=== PATIENT | female | born 1940 | race American Indian/Alaskan Native ===

== ENCOUNTER 2018-01-16 10:15 | Outpatient (CLI) | payer MEDICARE ==
--- NOTE | 2018-01-16 16:17 | Mammography Report ---
BILATERAL DIGITAL SCREENING MAMMOGRAM with CAD: 01/16/18 10:15:00 CLINICAL: Routine screening. COMPARISON:None available. FINDINGS: There are scattered areas of fibroglandular density.Bilateral benign vascular calcifications. No mass, architectural distortion or suspicious calcifications. IMPRESSION: No mammographic evidence of malignancy. BI-RADS CATEGORY: 2 -- Benign RECOMMENDATION: Routine mammographic screening in one year. COMMENT: Patient follow-up letters are generated by our [employer] application.
== END 2018-01-16 10:16 | disposition home or self-care (01) ==
LOC: MAMMO 10:15
PROVIDERS: ATTEND General Practice
DX: Z12.31 Encounter for screening mammogram for malignant neoplasm of breast (principal)
CPT/HCPCS: 77067

== ENCOUNTER 2018-12-01 08:53 | Day surgery (SDC) | payer MEDICARE | END 2018-12-01 09:45 | disposition home or self-care (01) | LOC: CATHLABREC 08:53 ==

== ENCOUNTER 2018-12-21 07:47 | Day surgery (SDC) | payer MEDICARE ==
[2018-12-21 09:02] LABS: Basophils # (Auto) 0.1 K/mm3 (0.0-0.1); Basophils % (Auto) 1.1 % (0.0-1.8); Eosinophils # (Auto) 0.2 K/mm3 (0.0-0.4); Hemoglobin 11.6 gm/dl (10.1-14.3); Lymphocytes # (Auto) 2.6 K/mm3 (1.2-5.4); Lymphocytes % (Auto) 33.5 % (13.4-35.0); Mean Corpuscular HGB Conc 33 % (30-34); Mean Corpuscular Volume 86 fl (79-97); Monocytes # (Auto) 0.7 K/mm3 (0.0-0.8); Monocytes % (Auto) 9.4 % (0.0-7.3); Platelet Count 378 K/mm3 (140-440); Red Blood Count 4.05 M/mm3 (3.65-5.03); Red Cell Distribution Width 14.7 % (13.2-15.2)
[2018-12-21 09:04] LABS: BUN/Creatinine Ratio 13; Blood Urea Nitrogen 9 mg/dL (7-17); Calcium 9.2 mg/dL (8.4-10.2); Hemolysis Index 7; INR 0.94 (0.87-1.13)
[2018-12-21 09:27] LABS: Partial Thromboplastin Time 26.9 Sec. (24.2-36.6)
[2018-12-21] MEDS ORDERED: NACL 0.9% 500 ML 500 ML IV SCH (10:00)
[2018-12-21] MEDS ORDERED: VERSED IV ONE (10:00)
[2018-12-21] MEDS ORDERED: SUBLIMAZE IV ONE (10:00)
--- NOTE | 2018-12-21 13:40 | Cat Scan Report ---
CT ABDOMEN PELVIS WITH AND WITHOUT CONTRAST CT BIOPSY PELVIS/HIP LEFT HISTORY: Pelvic mass, and endometrial cancer. TECHNIQUE: Helical CT before and after IV contrast. Sagittal and coronal reformatted images. COMPARISON: None at this facility. DESCRIPTION OF PROCEDURE: This examination was scheduled as a CT-guided biopsy of a left pelvic mass. CT with and without contrast was performed first because no previous imaging was available to me prior to the biopsy. Initial noncontrast CT scan demonstrates a mass like lesion continuous with the left side of the vaginal cuff measuring up to 2.7 x 3.0 cm. It was unclear if this represented a prominent vaginal cuff or mass. There is subtle enhancement of this area following IV contrast. I spoke with Dr. Young nurse practitioner, Valery, concerning this patient to gain additional information. This was the lesion noted on a previous CAT scan from another facility which was not available to me. Given the enhancement, it was decided to proceed with biopsy. Informed consent was obtained. Sterile technique was utilized. 1% lidocaine for skin anesthesia. Moderate sedation was accomplished with a Versed and fentanyl. The patient was sedated for 20 minutes. Intra-observer time of 45 minutes. Independent cardiorespiratory monitoring by RN. Using CT guidance, a 17-gauge introducer needle was advanced to the leading edge of the previously described left vaginal cuff mass. 2 separate 1.3 cm 18-gauge core biopsies were obtained. Pathology was present and deemed the samples adequate. Post biopsy scan demonstrates no evidence for hemorrhage. The patient tolerated the procedure without difficulty. IMPRESSION: Successful CT-guided biopsy of the left vaginal cuff mass. Preliminary report by the pathologist was positive for malignant cells. Of note, a slightly suspicious 1.2 x 1.0 cm left periaortic lymph node was also identified on the pre-biopsy scan just inferior to the left renal artery. This node is not accessible for CT-guided biopsy due to its vicinity to the aorta and left renal artery. I suspect this could represent a adrienne metastasis. Please correlate with previous CAT scans if they are available. No other areas suspicious for metastasis are identified.
[2018-12-21 14:00] VITALS: BP 132/62
== END 2018-12-21 14:50 | disposition home or self-care (01) ==
LOC: CATHLABREC 07:47
PROVIDERS: ATTEND Obstetrics & Gynecology Gynecologic Oncology
DX: C52 Malignant neoplasm of vagina (principal); R93.5 Abnormal findings on diagnostic imaging of other abdominal regions, including retroperitoneum; H40.9 Unspecified glaucoma; E78.00 Pure hypercholesterolemia, unspecified; I10 Essential (primary) hypertension; Z88.0 Allergy status to penicillin; Z88.6 Allergy status to analgesic agent; Z79.899 Other long term (current) drug therapy; Z85.42 Personal history of malignant neoplasm of other parts of uterus; Z79.84 Long term (current) use of oral hypoglycemic drugs; Z90.49 Acquired absence of other specified parts of digestive tract; Z98.51 Tubal ligation status; Z90.710 Acquired absence of both cervix and uterus; Z98.890 Other specified postprocedural states; Z83.3 Family history of diabetes mellitus; Z79.01 Long term (current) use of anticoagulants
CPT/HCPCS: 20206; 36415; 74178; 77012; 80048; 82962; 85025; 85610; 85730; 88305; 88333; 88341; 88342; 99156; J2250; J3010; J7040; Q9967; 88173